=== PATIENT | male | born 1945 | race Caucasian/White ===

== ENCOUNTER 2017-10-13 19:14 | Emergency (ER) | payer BC | END 2017-10-14 04:43 | disposition left against medical advice (07) | LOC: M ED 10-14 04:43 | DX: M79.605 Pain in left leg (principal); Z53.21 Procedure and treatment not carried out due to patient leaving prior to being seen by health care provider ==

== ENCOUNTER → 2021-05-17 | Outpatient (REF) | payer MEDICARE ==
[~2021-05-17] MED LIST: ATEN50TA2 PO; CLAR10CA3 PO; METF500T13 PO; SIMV10TA21 PO; VIAG100T PO
== END ==
LOC: M LAB REF 17:27
PROVIDERS: ATTEND Physician Assistant
DX: L30.8 Other specified dermatitis (principal)

== ENCOUNTER → 2022-05-31 | Outpatient (CLI) | payer OTHER ==
[~2022-05-31] MED LIST changes: +PROHANCE 279.3MG/ML 15ML VIAL As Ordered ONE; +PROHANCE 279.3MG/ML 5ML VIAL As Ordered ONE
== END ==
LOC: M RAD 08:10
PROVIDERS: ATTEND Urology
DX: Z12.5 Encounter for screening for malignant neoplasm of prostate (principal)
CPT/HCPCS: 72197; A9576

== ENCOUNTER → 2023-07-02 | Outpatient (REF) | payer OTHER ==
[~2023-07-02] MED LIST changes: -PROHANCE 279.3MG/ML 15ML VIAL As Ordered ONE; -PROHANCE 279.3MG/ML 5ML VIAL As Ordered ONE
== END ==
LOC: M SFHCDERM 18:13
PROVIDERS: ATTEND Physician Assistant
DX: C44.529 Squamous cell carcinoma of skin of other part of trunk (principal)

== ENCOUNTER → 2023-10-01 | Outpatient (REF) | payer OTHER | LOC: M SFHCDERM 17:56 | PROVIDERS: ATTEND Physician Assistant | DX: L90.5 Scar conditions and fibrosis of skin (principal) ==

== ENCOUNTER → 2023-10-15 | Outpatient (REF) | payer OTHER | LOC: M SFHCDERM 16:22 | PROVIDERS: ATTEND Nurse Practitioner Family | DX: Z48.02 Encounter for removal of sutures (principal) ==